=== PATIENT | female | born 1995 | race Caucasian/White ===

== ENCOUNTER 2018-09-27 21:55 | Observation (INO) | payer OTHER ==
[~2018-09-27] VITALS: Ht 170 cm; Wt 78.5 kg
[2018-09-27 22:27] VITALS: BP 129/78
[2018-09-28] MEDS ORDERED: MACR100 PO (00:25)
== END 2018-09-28 00:19 | disposition home or self-care (01) ==
LOC: 4S 21:55
PROVIDERS: ADMIT Obstetrics & Gynecology; ATTEND Obstetrics & Gynecology
DX: O42.92 Full-term premature rupture of membranes, unspecified as to length of time between rupture and onset of labor (principal); O62.9 Abnormality of forces of labor, unspecified; O46.93 Antepartum hemorrhage, unspecified, third trimester; Z3A.37 37 weeks gestation of pregnancy
CPT/HCPCS: 36415; 81002; 89060; G0378

== ENCOUNTER 2018-10-21 16:46 | Inpatient (IN) | payer OTHER ==
[~2018-10-21] VITALS: Ht 160 cm; Wt 81.2 kg
[~2018-10-21 16:46] MED LIST: MACR100 PO
[2018-10-21 18:37] VITALS: BP 133/88
[2018-10-21] MEDS ORDERED: FERR-89 PO (18:39)
[2018-10-21] MEDS ORDERED: FOLI0.4T14 PO (18:40)
[2018-10-21] MEDS ORDERED: OXYTOCIN 30 UNITS/LACT RINGERS 500 ML IV PRN (19:36)
[2018-10-21] MEDS ORDERED: RINGERS SOLUTION,LACTATED 1,000 ML IV PRN (19:36)
[2018-10-21] MEDS ORDERED: OXYTOCIN 30 UNITS/LACT RINGERS 500 ML IV ONE ×2 (19:36)
[2018-10-21] MEDS ORDERED: METHYLERGONOVINE MALEATE 0.2 MG/ML VIAL IM PRN (19:45)
[2018-10-21] MEDS ORDERED: METOCLOPRAMIDE HCL 5 MG/ML 2 ML VIAL IVP PRN (19:45)
[2018-10-21] MEDS ORDERED: CITRIC ACID/SODIUM CITRATE 30 ML SOLUTION UDCUP PO PRN (19:45)
[2018-10-21] MEDS ORDERED: OXYGEN THERAPY IH SCH (20:00)
[2018-10-21] MEDS: RINGERS SOLUTION,LACTATED 1,000 ML IV SCH (20:03)
[2018-10-21 20:22] LABS: BASOPHILS % (AUTO) 0.4 % (0.0-2.0); EOSINOPHILS % (AUTO) 0.3 % (1.0-6.0); HEMATOCRIT 31.9 % (36-46); HEMOGLOBIN 10.8 g/dL (12.0-16.0); LYMPHOCYTES # (AUTO) 2.3 K/uL (1.0-4.8); LYMPHOCYTES % (AUTO) 18.9 % (22.0-44.0); MEAN CORPUSCULAR HEMOGLOBIN 30.2 pg (26.0-34.0); MEAN CORPUSCULAR HGB CONC 33.9 G/dL (31.0-37.0); MEAN CORPUSCULAR VOLUME 89 fL (80-100); MONOCYTES # (AUTO) 0.7 K/uL (0.1-1.0); MONOCYTES % (AUTO) 5.5 % (2.0-9.0); NEUTROPHILS # (AUTO) 9.1 K/uL (1.8-7.7); NEUTROPHILS % (AUTO) 74.9 % (40.0-70.0); PLATELET COUNT (AUTO)-OB 256 K/uL (150-450); RED BLOOD CELL COUNT(AUTO) 3.58 MIL/uL (4.00-5.20); RED CELL DISTRIBUTION WIDTH 14.4 % (11.5-14.5)
[2018-10-22] MEDS: FentaNYL CITRATE-PF 100 MCG/2 ML VIAL IVP PRN ×2 (00:06→00:12)
[2018-10-22] MEDS ORDERED: ROPIVACAINE HCL/PF 0.2% 100 ML ED ONE (02:01)
[2018-10-22] MEDS: RINGERS SOLUTION,LACTATED 1,000 ML IV SCH ×2 (02:02→03:03)
[2018-10-22] MEDS ORDERED: ONDANSETRON HCL 4 MG/2 ML VIAL IVP PRN (02:30)
[2018-10-22] MEDS ORDERED: ROPIVACAINE HCL/PF 0.2% 100 ML ED PRN (02:30)
[2018-10-22] MEDS ORDERED: DiphenhydrAMINE HCL 50 MG/ML VIAL IVP PRN (02:30)
[2018-10-22] MEDS ORDERED: LIDOCAINE/PF 2% 5 ML VIAL ONE (02:59)
[2018-10-22] MEDS ORDERED: FentaNYL CITRATE-PF 100 MCG/2 ML VIAL ONE ×2 (02:59→07:23)
[2018-10-22] MEDS ORDERED: BUPIVACAINE HCL/PF 0.25% 10 ML VIAL ONE (07:23)
[2018-10-22] MEDS ORDERED: LIDOCAINE/PF 1% 30 ML VIAL ONE (08:29)
[2018-10-22] MEDS ORDERED: OxyCODONE HCL/ACETAMINOPHEN 5-325 MG TABLET PO PRN ×2 (09:30)
[2018-10-22] MEDS ORDERED: LANOLIN 7 GM OINTMENT TP PRN (09:30)
[2018-10-22] MEDS ORDERED: MAGNESIUM HYDROXIDE SUSPENSION 30 ML UDCUP PO PRN (09:30)
[2018-10-22] MEDS ORDERED: BENZOCAINE 20%/MENTHOL 56 GM SPRAY CANISTER TP PRN (09:30)
[2018-10-22] MEDS ORDERED: GLYCERIN/WITCH HAZEL LEAF 40 PADS JAR TP PRN (09:30)
[2018-10-22] MEDS ORDERED: LIDOCAINE/PF 1% 30 ML VIAL INJ PRN (09:30)
[2018-10-22] MEDS: IBUPROFEN 800 MG TABLET PO PRN (09:42)
[2018-10-23 06:35] LABS: BASOPHILS % (AUTO) 0.3 % (0.0-2.0); EOSINOPHILS % (AUTO) 0.2 % (1.0-6.0); HEMATOCRIT 26.5 % (36-46); HEMOGLOBIN 8.8 g/dL (12.0-16.0); LYMPHOCYTES # (AUTO) 2.9 K/uL (1.0-4.8); LYMPHOCYTES % (AUTO) 17.3 % (22.0-44.0); MEAN CORPUSCULAR HEMOGLOBIN 30.3 pg (26.0-34.0); MEAN CORPUSCULAR HGB CONC 33.4 G/dL (31.0-37.0); MEAN CORPUSCULAR VOLUME 91 fL (80-100); MONOCYTES # (AUTO) 1.2 K/uL (0.1-1.0); MONOCYTES % (AUTO) 7.5 % (2.0-9.0); NEUTROPHILS # (AUTO) 12.4 K/uL (1.8-7.7); NEUTROPHILS % (AUTO) 74.7 % (40.0-70.0); PLATELET COUNT (AUTO)-OB 226 K/uL (150-450); RED BLOOD CELL COUNT(AUTO) 2.92 MIL/uL (4.00-5.20); RED CELL DISTRIBUTION WIDTH 14.4 % (11.5-14.5)
[2018-10-23] MEDS: IBUPROFEN 800 MG TABLET PO PRN (07:00)
[2018-10-23] MEDS ORDERED: DSS100 PO (09:58)
[2018-10-23] MEDS ORDERED: IBUP-2071 PO (09:58)
== END 2018-10-23 11:15 | disposition home or self-care (01) | DRG 806 ==
LOC: 4S 16:46 → OBSVTOIN 16:46
PROVIDERS: ADMIT Obstetrics & Gynecology; ATTEND Obstetrics & Gynecology
PROC: 10E0XZZ Delivery of Products of Conception, External Approach (ICD-10-PCS; principal; 2018-10-22)
PROC: 0UQGXZZ Repair Vagina, External Approach (ICD-10-PCS; 2018-10-22)
PROC: 3E0R3BZ Introduction of Anesthetic Agent into Spinal Canal, Percutaneous Approach (ICD-10-PCS; 2018-10-22)
PROC: 00HU33Z Insertion of Infusion Device into Spinal Canal, Percutaneous Approach (ICD-10-PCS; 2018-10-22)
DX: O66.0 Obstructed labor due to shoulder dystocia (principal); O71.4 Obstetric high vaginal laceration alone; O77.0 Labor and delivery complicated by meconium in amniotic fluid; Z37.0 Single live birth; Z3A.40 40 weeks gestation of pregnancy
CPT/HCPCS: 86850; 86900; 86901; J2590; J2795; J3010; J3490; J7120